=== PATIENT | female | born 1945 | race Caucasian/White ===

== ENCOUNTER 2020-10-28 11:10 | Emergency (ER) | payer MEDICARE, OTHER ==
[2020-10-28 12:21] LABS: RED BLOOD COUNT 1.91 M/UL (4.00-5.10)
[2020-10-28 12:27] LABS: HEMOGLOBIN 5.5 gm/dl (12.3-15.3)
[2020-10-28 13:15] LABS: BUN/CREATININE RATIO 31 (0-10)
[2020-10-28 13:22] LABS: WHITE BLOOD COUNT 6.6 K/UL (4.5-11.0)
== END 2020-10-28 20:00 | disposition short-term general hospital (02) ==
LOC: ER1 11:10
PROVIDERS: Emergency Medicine
DX: K92.2 Gastrointestinal hemorrhage, unspecified (principal); M25.512 Pain in left shoulder; I13.0 Hypertensive heart and chronic kidney disease with heart failure and stage 1 through stage 4 chronic kidney disease, or unspecified chronic kidney disease; E11.22 Type 2 diabetes mellitus with diabetic chronic kidney disease; Z20.822 Contact with and (suspected) exposure to COVID-19; N18.9 Chronic kidney disease, unspecified; I50.9 Heart failure, unspecified; D63.1 Anemia in chronic kidney disease; E78.5 Hyperlipidemia, unspecified; J44.9 Chronic obstructive pulmonary disease, unspecified; R91.8 Other nonspecific abnormal finding of lung field
CPT/HCPCS: 0240U; 36430; 36600; 71045; 80053; 82272; 82550; 82553; 82803; 83605; 83874; 83880; 84484; 85025; 85610; 85730; 86850; 86900; 86901; 86920; 87040; 93005; 94660; 94760; 96374; 96375; 99285; C9113; J0696; J1940; J2405; P9016

== ENCOUNTER 2020-11-26 07:38 | Inpatient (IN) | payer MEDICARE, OTHER ==
[~2020-11-26] VITALS: Ht 152.4 cm; Wt 112.5 kg
[2020-11-26 08:20] LABS: HEMOGLOBIN 8.8 gm/dl (12.3-15.3); RED BLOOD COUNT 3.11 M/UL (4.00-5.10); WHITE BLOOD COUNT 5.3 K/UL (4.5-11.0)
[2020-11-26 08:49] LABS: BUN/CREATININE RATIO 22 (0-10)
[2020-11-26] MEDS ORDERED: NIFEDIPINE ER90 MG PO (14:02)
[2020-11-26] MEDS ORDERED: NITROGLYCERIN0.4 MG SL (14:02)
[2020-11-26] MEDS ORDERED: ONDANSETRON ODT8 MG PO (14:03)
[2020-11-26] MEDS ORDERED: CARVEDILOL6.25 MG PO (14:04)
[2020-11-26] MEDS ORDERED: DEMADEX 5 MG TAB5 MG PO (14:05)
[2020-11-26] MEDS ORDERED: PROVENTIL HFA6.7 GM INH (14:06)
[2020-11-26] MEDS ORDERED: SYMBICORT 80-10.2 GM INH (14:08)
[2020-11-26] MEDS ORDERED: CRESTOR5 MG PO (14:09)
[2020-11-26] MEDS ORDERED: LANTUS SOL100 UNIT/1 SQ (14:10)
[2020-11-27 03:42] LABS: HEMOGLOBIN 7.5 gm/dl (12.3-15.3)
[2020-11-27 03:43] LABS: RED BLOOD COUNT 2.66 M/UL (4.00-5.10); WHITE BLOOD COUNT 3.5 K/UL (4.5-11.0)
[2020-11-27 15:08] LABS: HEMOGLOBIN 7.9 gm/dl (12.3-15.3)
[2020-11-28 02:37] LABS: HEMOGLOBIN 7.8 gm/dl (12.3-15.3); RED BLOOD COUNT 2.8 M/UL (4.00-5.10)
[2020-11-29 03:12] LABS: HEMOGLOBIN 7.7 gm/dl (12.3-15.3); RED BLOOD COUNT 2.76 M/UL (4.00-5.10); WHITE BLOOD COUNT 6.6 K/UL (4.5-11.0)
[2020-11-30 03:26] LABS: HEMOGLOBIN 7.9 gm/dl (12.3-15.3); RED BLOOD COUNT 2.79 M/UL (4.00-5.10); WHITE BLOOD COUNT 7.1 K/UL (4.5-11.0)
[2020-11-30 14:12] LABS: ORGANISM ID Not indicated. (.); SPECIMEN SOURCE Urine (.); STREPTOCOCCUS PNEUMONIAE AG Negative (Negative)
[2020-12-01 05:03] LABS: HEMOGLOBIN 7.7 gm/dl (12.3-15.3); RED BLOOD COUNT 2.69 M/UL (4.00-5.10)
[2020-12-01 05:07] LABS: WHITE BLOOD COUNT 4.9 K/UL (4.5-11.0)
[2020-12-01] MEDS ORDERED: ZAROXOLYN/DIULO5 MG PO (10:48)
[2020-12-01] MEDS ORDERED: PROTONIX 40 MG40 M1 PO (10:48)
[2020-12-01] MEDS ORDERED: BUMETANIDE2 MG PO (10:48)
[2020-12-01] MEDS ORDERED: FEOSOL325 MG PO (10:57)
== END 2020-12-01 11:39 | disposition home health service (06) | DRG 291 ==
LOC: ER1 07:38 → PROG CARE 10:37 → CDU 10:37 → PROG CARE 13:04
PROVIDERS: Emergency Medicine; Internal Medicine; Internal Medicine Infectious Disease; Internal Medicine Pulmonary Disease; ADMIT Internal Medicine
PROC: 5A09357 Assistance with Respiratory Ventilation, Less than 24 Consecutive Hours, Continuous Positive Airway Pressure (ICD-10-PCS; principal; 2020-11-26)
PROC: B24BZZZ Ultrasonography of Heart with Aorta (ICD-10-PCS; 2020-11-27)
DX: I13.0 Hypertensive heart and chronic kidney disease with heart failure and stage 1 through stage 4 chronic kidney disease, or unspecified chronic kidney disease (principal); I50.33 Acute on chronic diastolic (congestive) heart failure; G93.41 Metabolic encephalopathy; J96.22 Acute and chronic respiratory failure with hypercapnia; J96.21 Acute and chronic respiratory failure with hypoxia; J18.9 Pneumonia, unspecified organism; J44.1 Chronic obstructive pulmonary disease with (acute) exacerbation; N17.9 Acute kidney failure, unspecified; E44.0 Moderate protein-calorie malnutrition; Z68.42 Body mass index [BMI] 45.0-49.9, adult; E66.2 Morbid (severe) obesity with alveolar hypoventilation; J44.0 Chronic obstructive pulmonary disease with (acute) lower respiratory infection; Z20.822 Contact with and (suspected) exposure to COVID-19; E11.65 Type 2 diabetes mellitus with hyperglycemia; E11.22 Type 2 diabetes mellitus with diabetic chronic kidney disease; E78.5 Hyperlipidemia, unspecified; N18.30 Chronic kidney disease, stage 3 unspecified; D50.9 Iron deficiency anemia, unspecified; E87.5 Hyperkalemia; I08.3 Combined rheumatic disorders of mitral, aortic and tricuspid valves; I27.20 Pulmonary hypertension, unspecified; Z99.81 Dependence on supplemental oxygen; Z86.73 Personal history of transient ischemic attack (TIA), and cerebral infarction without residual deficits; Z90.49 Acquired absence of other specified parts of digestive tract; Z98.51 Tubal ligation status; Z79.4 Long term (current) use of insulin; Z79.899 Other long term (current) drug therapy; Z87.891 Personal history of nicotine dependence; Z83.3 Family history of diabetes mellitus; Z82.3 Family history of stroke
CPT/HCPCS: ECHO; 36415; 36600; 70450; 71045; 71250; 80048; 80053; 81001; 82550; 82553; 82570; 82803; 82962; 83540; 83550; 83605; 83615; 83735; 83874; 83880; 84100; 84132; 84133; 84156; 84300; 84439; 84443; 84484; 85014; 85018; 85025; 85027; 85610; 86140; 87040; 87081; 87086; 87278; 87899; 89050; 93005; 93306; 94640; 94660; 94760; 96374; 97116; 97162; 97166; 97535; 99285; J0696; J1205; J1650; J1756; J1940; J2405; J2920; P9047; U0002

== ENCOUNTER 2022-01-08 15:39 | Inpatient (IN) | payer MEDICARE, OTHER ==
[~2022-01-08] VITALS: Ht 152.4 cm; Wt 96.6 kg
[~2022-01-08 15:39] MED LIST: BUMETANIDE2 MG PO; CARVEDILOL6.25 MG PO; CRESTOR5 MG PO; DEMADEX 5 MG TAB5 MG PO; FEOSOL325 MG PO; LANTUS SOL100 UNIT/1 SQ; NIFEDIPINE ER90 MG PO; NITROGLYCERIN0.4 MG SL; ONDANSETRON ODT8 MG PO; PROTONIX 40 MG40 M1 PO; PROVENTIL HFA6.7 GM INH; SYMBICORT 80-10.2 GM INH; ZAROXOLYN/DIULO5 MG PO
[2022-01-08 16:16] LABS: HEMOGLOBIN 8.2 gm/dl (12.3-15.3); RED BLOOD COUNT 2.85 M/UL (4.00-5.10); WHITE BLOOD COUNT 5.7 K/UL (4.5-11.0)
[2022-01-08 16:49] LABS: BUN/CREATININE RATIO 21 (0-10)
[2022-01-08] MEDS ORDERED: PROTONIX 40 MG40 M1 PO (17:47)
[2022-01-08] MEDS ORDERED: ZAROXOLYN/DIULO5 MG PO (17:49)
[2022-01-08] MEDS ORDERED: SPIRONOLACTONE25 MG PO (17:49)
[2022-01-08] MEDS ORDERED: BUMETANIDE2 MG PO (17:50)
[2022-01-09 03:18] LABS: HEMOGLOBIN 7.4 gm/dl (12.3-15.3); RED BLOOD COUNT 2.56 M/UL (4.00-5.10); WHITE BLOOD COUNT 4.4 K/UL (4.5-11.0)
[2022-01-10 02:07] LABS: HEMOGLOBIN 8.1 gm/dl (12.3-15.3); RED BLOOD COUNT 2.71 M/UL (4.00-5.10)
[2022-01-11 09:01] LABS: HEMOGLOBIN 9.2 gm/dl (12.3-15.3); WHITE BLOOD COUNT 6.1 K/UL (4.5-11.0)
[2022-01-11 09:04] LABS: RED BLOOD COUNT 3.06 M/UL (4.00-5.10)
[2022-01-12] MEDS ORDERED: NIFEDIPINE ER60 M1 PO (13:03)
[2022-01-12] MEDS ORDERED: CARVEDILOL6.25 MG PO (13:03)
[2022-01-12] MEDS ORDERED: LANTUS SOL100 UNIT/1 SQ (13:07)
== END 2022-01-12 15:03 | disposition home or self-care (01) | DRG 682 ==
LOC: ER1 15:39 → PROG CARE 17:14 → CDU 17:14 → PROG CARE 19:42
PROVIDERS: Emergency Medicine; Internal Medicine; Physician Assistant Medical; ADMIT Internal Medicine Infectious Disease
PROC: 5A09457 Assistance with Respiratory Ventilation, 24-96 Consecutive Hours, Continuous Positive Airway Pressure (ICD-10-PCS; 2022-01-08)
PROC: 30233N1 Transfusion of Nonautologous Red Blood Cells into Peripheral Vein, Percutaneous Approach (ICD-10-PCS; principal; 2022-01-09)
PROC: 5A09357 Assistance with Respiratory Ventilation, Less than 24 Consecutive Hours, Continuous Positive Airway Pressure (ICD-10-PCS; 2022-01-11)
PROC: 5A09357 Assistance with Respiratory Ventilation, Less than 24 Consecutive Hours, Continuous Positive Airway Pressure (ICD-10-PCS; 2022-01-12)
DX: N17.9 Acute kidney failure, unspecified (principal); J96.21 Acute and chronic respiratory failure with hypoxia; Z20.822 Contact with and (suspected) exposure to COVID-19; J96.22 Acute and chronic respiratory failure with hypercapnia; J44.1 Chronic obstructive pulmonary disease with (acute) exacerbation; E66.2 Morbid (severe) obesity with alveolar hypoventilation; E87.1 Hypo-osmolality and hyponatremia; I13.0 Hypertensive heart and chronic kidney disease with heart failure and stage 1 through stage 4 chronic kidney disease, or unspecified chronic kidney disease; Z68.41 Body mass index [BMI] 40.0-44.9, adult; T50.2X5A Adverse effect of carbonic-anhydrase inhibitors, benzothiadiazides and other diuretics, initial encounter; E87.5 Hyperkalemia; I50.9 Heart failure, unspecified; E78.5 Hyperlipidemia, unspecified; N18.9 Chronic kidney disease, unspecified; D63.1 Anemia in chronic kidney disease; N18.30 Chronic kidney disease, stage 3 unspecified; E11.649 Type 2 diabetes mellitus with hypoglycemia without coma; Z79.4 Long term (current) use of insulin; Z86.73 Personal history of transient ischemic attack (TIA), and cerebral infarction without residual deficits; Z99.81 Dependence on supplemental oxygen; Z83.3 Family history of diabetes mellitus; Z82.3 Family history of stroke; Z98.51 Tubal ligation status; Z90.49 Acquired absence of other specified parts of digestive tract
CPT/HCPCS: 0240U; 36415; 36600; 71045; 71046; 80048; 80053; 81001; 82550; 82553; 82728; 82803; 82962; 83540; 83550; 83605; 83735; 83880; 84484; 85025; 85027; 86850; 86900; 86901; 86920; 87040; 93005; 94640; 94660; 94664; 94760; 96374; 96375; 99285; G0378; J0360; J0696; J1940; J2405; P9016

== ENCOUNTER → 2022-02-22 | Outpatient (CLI) | payer MEDICARE, OTHER ==
[~2022-02-22] MED LIST changes: +NIFEDIPINE ER60 M1 PO; +SPIRONOLACTONE25 MG PO
== END ==
LOC: HEART 5 14:44
DX: J44.9 Chronic obstructive pulmonary disease, unspecified (principal)
CPT/HCPCS: 36600; 82803